=== PATIENT | male | born 1960 | race Caucasian/White ===

== ENCOUNTER 2019-12-19 09:16 | Emergency (ER) | payer BC ==
[2019-12-19 09:26] VITALS: BP 152/90; PULSE 104
--- NOTE | 2019-12-19 09:29 | EDM.PDOC ---
ED HPI GENERAL MEDICAL PROBLEM - General Chief Complaint: Lower Extremity Injury/Pain Stated Complaint: SWOLLEN RIGHT KNEE(POST FOOT SURGERY) Time Seen by Provider: 12/19/19 09:26 - History of Present Illness INITIAL COMMENTS - FREE TEXT/NARRATIVE: 59-year-old male presents the emergency room with right knee pain and swelling. The patient is a little over 3 weeks post right foot surgery and he is developed significant swelling around his knee and proximal to his knee. The pain he had postoperatively was nothing compared to this. [place]. Patient denies any fevers or chills no breathing difficulties or shortness of breath. The knee pain has been getting worse over the last 24 hours. Right Knee Pain Score (Numeric/FACES): 9 - Related Data Allergies Allergy/AdvReac Type Severity Reaction Status Date / Time hydrocodone Allergy Itching Verified 12/19/19 09:28 Home Meds: Home Meds traMADol HCl [Tramadol HCl] 50 mg PO Q6H PRN 12/19/19 [History] Past Medical History Other Musculoskeletal History: Split Plevis x2, Left shoulder dislocations - Past Surgical History Other Musculoskeletal Surgeries/Procedures:: Back Surgery, Left ankle and right foot fused Review of Systems - Review of Systems Review Of Systems: See Below Constitutional: Reports: No Symptoms Respiratory: Reports: No Symptoms Cardiovascular: Reports: No Symptoms GI/Abdominal: Reports: No Symptoms Genitourinary: Reports: No Symptoms Musculoskeletal: Reports: Foot Pain (Normal postop) ED EXAM, GENERAL - Physical Exam Exam: See Below Exam Limited By: No Limitations General Appearance: Alert, No Apparent Distress Head: Atraumatic, Normocephalic Neck: Normal Inspection, Supple, Non-Tender, Full Range of Motion Respiratory/Chest: No Respiratory Distress, Lungs Clear, Normal Breath Sounds Cardiovascular: Regular Rate, Rhythm, No Edema, No Murmur Back Exam: Normal Inspection. No: CVA Tenderness (L), CVA Tenderness (R), Muscle Spasm, Vertebral Tenderness Extremities: Other (Patient with right leg does not show significant discomfort in the lower leg. Incisions are healing well. The knee is significantly swollen with proximal swelling and discomfort more medial than lateral.) Course - Vital Signs Last Recorded V/S: Last Vital Signs Temp 37.4 C 12/19/19 09:24 Pulse 104 H 02/25/20 09:24 Resp 16 12/19/19 09:24 BP 152/90 H 12/19/19 09:24 Pulse Ox 92 L 12/19/19 09:24 - Orders/Labs/Meds Orders: Active Orders 24 hr Category Date Time Status Knee 3V Rt [CR] Stat Exams 12/19/19 09:40 Taken Labs: Laboratory Tests 12/19/19 12/19/19 Range/Units 10:33 10:33 WBC 10.50 H (4.23-9.07) K/mm3 RBC 4.68 (4.63-6.08) M/mm3 Hgb 14.6 (13.7-17.5) gm/dl Hct 41.5 (40.1-51.0) % MCV 88.7 (79.0-92.2) fl MCH 31.2 (25.7-32.2) pg MCHC 35.2 (32.2-35.5) g/dl RDW Std Deviation 41.3 (35.1-43.9) fL Plt Count 278 (163-337) K/mm3 MPV 8.8 L (9.4-12.3) fl Neut % (Auto) 76.9 H (34.0-67.9) % Lymph % (Auto) 11.6 L (21.8-53.1) % Foster % (Auto) 10.9 (5.3-12.2) % Eos % (Auto) 0.3 L (0.8-7.0) Baso % (Auto) 0.1 (0.1-1.2) % Neut # (Auto) 8.08 H (1.78-5.38) K/mm3 Lymph # (Auto) 1.22 L (1.32-3.57) K/mm3 Foster # (Auto) 1.14 H (0.30-0.82) K/mm3 Eos # (Auto) 0.03 L (0.04-0.54) K/mm3 Baso # (Auto) 0.01 (0.01-0.08) K/mm3 Sodium 140 (136-145) mEq/L Potassium 3.7 (3.5-5.1) mEq/L Chloride 103 (98-107) mEq/L Carbon Dioxide 25 (21-32) mEq/L Anion Gap 15.7 H (5-15) BUN 12 (7-18) mg/dL Creatinine 0.8 (0.7-1.3) mg/dL Est Cr Clr Drug Dosing 109.59 mL/min Estimated GFR (MDRD) > 60 (>60) mL/min BUN/Creatinine Ratio 15.0 (14-18) Glucose 104 (80-115) mg/dL Uric Acid 4.6 (3.5-7.2) mg/dL Calcium 9.0 (8.5-10.1) mg/dL C-Reactive Protein 4.2 H* (<1.0) mg/dL - Re-Assessments/Exams Free Text/Narrative Re-Assessment/Exam: 12/19/19 12:38 The patient's knee shows some chondrocalcinosis and significant degenerative joint disease. What I did not know was the patient is using 1 of those knee scooter to get around is foot surgery. Laboratory evaluation is unremarkable the patient case was discussed with Dr. Paulino who did come and evaluate the patient in the emergency room and would like to see him immediately after discharge from the ER for knee injection he believes the patient just flared up his arthritis in his knee which makes perfectly good sense now knowing he is using that little scooter. The patient also had a lower leg Doppler that was negative Departure - Departure Time of Disposition: 12:39 Disposition: Home, Self-Care 01 Clinical Impression: Degenerative joint disease of right knee - Discharge Information Referrals: Jasmyn Hoyt PA-C [Physician [employer]] - Forms: ED Department Discharge Additional Instructions: Return to the emergency room with any questions problems or worsening symptoms. Follow-up with Dr. Paulino immediately after leaving the emergency room Sepsis Event Note - Focused Exam Vital Signs: Vital Signs Temp Pulse Resp BP Pulse Ox 12/19/19 09:24 37.4 C 104 H 16 152/90 H 92 L Date Exam was Performed: 12/19/19 Time Exam was Performed: 12:38 - My Orders Last 24 Hours: My Active Orders 12/19/19 09:40 Knee 3V Rt [CR] Stat - Assessment/Plan Last 24 Hours: My Active Orders 12/19/19 09:40 Knee 3V Rt [CR] Stat
--- NOTE | 2019-12-19 10:46 | US ---
Right lower extremity deep venous ultrasound: Duplex and color Doppler evaluation was obtained of the right common femoral, proximal greater saphenous, superficial femoral, popliteal, posterior tibial and peroneal veins. Left common femoral vein was also evaluated. Comparison: No prior venous imaging is available. Findings: Normal phasic flow, augmentation and compression is seen. Complicated popliteal cyst noted measuring 3.8 x 3.3 x 2.3 cm Impression: 1. No evidence of deep venous thrombosis within the right lower extremity or within the left common femoral vein. 2. Popliteal cyst as noted above. Diagnostic code #2 This report was dictated in [place] Standard Time
--- NOTE | 2019-12-20 08:33 | CR ---
Right knee: AP, lateral and sunrise patellar views of the right knee were obtained. Comparison: No previous knee exam. Slight chondrocalcinosis seen within the menisci. Joint spaces are preserved. Small osteophyte is noted off the superior patella. No fracture or other bony abnormality is appreciated. Impression: 1. Mild degenerative change as noted above. Diagnostic code #2 This report was dictated in [place] Standard Time
== END 2019-12-19 12:45 | disposition home or self-care (01) ==
LOC: JD.ED 09:16
DX: M17.11 Unilateral primary osteoarthritis, right knee (principal); Z88.5 Allergy status to narcotic agent
CPT/HCPCS: 36415; 73562-26-RT; 73562-RT; 80048; 84550; 85025; 86140; 93971-26-RT; 93971-RT; 99282; 99284-25

== ENCOUNTER 2020-10-19 11:14 | Emergency (ER) | payer BC ==
--- NOTE | 2020-10-19 12:07 | EDM.PDOC ---
ED HPI GENERAL MEDICAL PROBLEM - General Chief Complaint: Lower Extremity Injury/Pain Stated Complaint: INJURY TO RT KNEE NOW HAS FLUID Time Seen by Provider: 10/19/20 11:50 Source of Information: Reports: Patient History Limitations: Reports: No Limitations - History of Present Illness INITIAL COMMENTS - FREE TEXT/NARRATIVE: 60-year-old male presents to the ED with an acute traumatic injury to his right knee. 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 He had a calf go [place] a 60 foot [place] yesterday and he was wiliam enough to find her. She was on the ice and she head butted him in the right lateral knee causing a valgus strain to the knee. At present he hurts from his right lower rib cage to his right ankle. He appreciates severe marked swelling of his right knee that is gradually increased in size over the last 12 hours. He did barely get any sleep last night due to the throbbing pain. He was hopeful that we could remove the fluid from his knee to reduce the pain and swelling. Patient has had multiple surgeries to his right foot in the past. He has had his right knee drained once in the past due to an accumulation of fluid presumably from arthritis. No previous right knee surgery. Onset: Sudden Onset Date: 10/18/20 Duration: Hour(s):, Getting Worse Location: Reports: Lower Extremity, Right Quality: Reports: Ache (Severe pain and swelling of the right knee.), Throbbing Severity: Severe (10) Improves with: Reports: Rest Worsens with: Reports: Other Context: Reports: Trauma (By 1000 pound calf yesterday with a valgus strain to his right knee.). 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, Other (see below) (He took some Tylenol with Benadryl medicine last night and got a few hours sleep.) Right Knee Pain Score (Numeric/FACES): 8 - Related Data Allergies Allergy/AdvReac Type Severity Reaction Status Date / Time hydrocodone Allergy Itching Verified 10/19/20 11:34 Home Meds: Home Meds HYDROmorphone [Dilaudid] 4 mg PO Q6H #20 tablet 10/19/20 [Rx] Past Medical History Other Musculoskeletal History: Split Plevis x2, Left shoulder dislocations - Past Surgical History GI Surgical History: Reports: Hernia Repair/Other Other Musculoskeletal Surgeries/Procedures:: Back Surgery, Left ankle and right foot fused Social & Family History - Tobacco Use Tobacco Use Status *Q: Never Tobacco User Second Hand Smoke Exposure: No - Caffeine Use Caffeine Use: Reports: Coffee - Recreational Drug Use Recreational Drug Use: No - Living Situation & Occupation Living situation: Reports: Occupation: Employed ([employer] employed [employer]) Review of Systems - Review of Systems Review Of Systems: See Below Constitutional: Reports: No Symptoms Eyes: Reports: Other Ears: Reports: Other (Wears glasses for reading. Mildly hard of hearing.) Nose: Reports: No Symptoms Mouth/Throat: Reports: No Symptoms Respiratory: Reports: No Symptoms Cardiovascular: Reports: No Symptoms GI/Abdominal: Reports: No Symptoms Genitourinary: Reports: Other (Nocturia x2) Musculoskeletal: Reports: Neck Pain, Shoulder Pain, Back Pain ( slow urinary stream.), Foot Pain Skin: Reports: No Symptoms Neurological: Reports: No Symptoms Psychiatric: Reports: No Symptoms ED EXAM, GENERAL - Physical Exam Exam: See Below Exam Limited By: No Limitations General Appearance: Alert, WD/WN, Mild Distress, Other (Patient is very stoic but he is in obvious discomfort. Temperature is 36.8 heart rate was 58 and sinus. Respiratory to 16 blood pressure 1 3592.) Respiratory/Chest: No Respiratory Distress, Lungs Clear, Normal Breath Sounds, No Accessory Muscle Use Cardiovascular: Normal Peripheral Pulses, Regular Rate, Rhythm, No Edema, No Gallop, No Murmur Peripheral Pulses: 2+: Posterior Tibial (L), Posterior Tibial (R), Dorsalis Pedis (L), Dorsalis Pedis (R) Extremities: Other (Lamination was limited both lower extremities. Patient has a very large traumatic effusion of the right knee which is failed the suprapatellar recess. It is still somewhat fluctuant suggesting is not clotted completely yet. He has loss of 70 degrees flexion at the knee. He also has 10 degree loss of extension due to pain. He has pain along the medial and lateral aspects of the knee joint. Patellofemoral articulation appears to be normal.) Neurological: Alert, Oriented, CN II-XII Intact Psychiatric: Normal Affect, Normal Mood Skin Exam: Warm, Dry, Intact, Normal Color, No Rash Course - Vital Signs Last Recorded V/S: Last Vital Signs Temp 36.8 C 10/19/20 11:30 Pulse 78 10/19/20 13:20 Resp 18 10/19/20 13:20 BP 146/82 H 10/19/20 13:20 Pulse Ox 97 10/19/20 13:20 - Orders/Labs/Meds Orders: Active Orders 24 hr Category Date Time Status Knee 3V Rt [CR] Stat Exams 10/19/20 12:03 Taken DME for Discharge [COMM] Per Unit Routine Oth 10/19/20 13:15 Ordered - Radiology Interpretation Free Text/Narrative:: 60-year-old male presents to the ED for evaluation of right knee pain. Injury occurred yesterday when he had to wrangle one of his large calves gone [place] 60 [place]. He states he was head butted in the right lateral knee causing a valgus strain to the knee. He hurts from his right lower ribs to his ankle. He cannot weight-bear on the right leg at this time due to pain. Exam reveals a large traumatic effusion of the right knee. Likely torn cruciate ligaments. Unable to assess well because of the pain and inability to flex his knee. Plan an x-ray of the knee will be obtained to make sure there is no fractures but clinically he likely has meniscal tear and cruciate ligament tear. Offered analgesia but he states he gets very pruritic from oral narcotics such as Percocet and hydrocodone. - Re-Assessments/Exams Free Text/Narrative Re-Assessment/Exam: 10/19/20 13:05: X-rays of the right knee have been performed. He does have some degenerative changes particular at the patellofemoral articulation with some spurring on the inferior portion of the patella. Mild degenerative arthritic change appreciated within the true knee joint. No fractures identified within the knee , proximal tibia or distal femur. Patient will be placed in a right knee splint to be worn at all times until follow-up with Dr. Paulino -- orthopedic surgeon in the clinic within the next week to 10 days. Patient will use Motrin 600 mg every 6 hours necessary for pain relief. He states that he gets very itchy from taking Percocet or hydrocodone. I again did give him a prescription for Dilaudid 4 mg tablets to be taken 1 tablet every 4 hours as necessary to help take the edge off the pain for the next couple of days. He will elevate the right leg is much as possible. Ice pack to the knee today and start heat pack tomorrow. Clinically has internal derangement of the knee with significant traumatic effusion. Departure - Departure Time of Disposition: 13:22 Disposition: Home, Self-Care 01 Condition: Fair Clinical Impression: Internal derangement of right knee, Traumatic hemarthrosis of right knee - Discharge Information *PRESCRIPTION DRUG MONITORING PROGRAM REVIEWED*: Not Applicable *COPY OF PRESCRIPTION DRUG MONITORING REPORT IN PATIENT CARL: Not Applicable Prescriptions: HYDROmorphone [Dilaudid] 4 mg PO Q6H #20 tablet Instructions: How to Use Cold Therapy, [id number] Referrals: PCP,None [Primary Care Provider] - Forms: ED Department Discharge Additional Instructions: Evaluation in the emergency room today in regards to acute injury to the right knee that occurred yesterday p.m. when you were struck by a large calf on the right side of your body. Acute injury to the right knee has occurred with a valgus strain from being struck from the outside / lateral aspect of your knee. This is resulted in in the knee filling up with blood from the trauma. This suggest that there is internal derangement of the knee likely torn cruciate ligament and meniscus or cartilage tear. X-rays of the knee revealed some degenerative arthritic changes particularly at the inferior portion of the kneecap but there was no broken bones in the knee as one would anticipate. Treatment at this time is ice pack to the knee 1/2-hour out of every 4 hours today and then start to use heat on the knee tomorrow to help reduce the swelling. Nonweightbearing crutch walking until follow-up with Dr. Paulino orthopedic surgeon. Knee immobilizer to be worn certainly all day long and may leave off at night if not going to be up to the washroom too many times. Please phone Dr. Paulino's office on Wednesday morning to arrange an appointment. His phone number is [phone]. Use Motrin 600 mg every 6 hours to reduce pain and inflammation. May try Dilaudid 4 mg tablet 1 every 4-6 hours as necessary for pain relief especially at nighttime for the next few days until the swelling starts to settle down. Sepsis Event Note (ED) - Evaluation Sepsis Screening Result: No Definite Risk - Focused Exam Vital Signs: Vital Signs Temp Pulse Resp BP Pulse Ox 10/19/20 13:20 78 18 146/82 H 97 10/19/20 11:30 36.8 C 16 135/92 H - My Orders Last 24 Hours: My Active Orders 10/19/20 12:03 Knee 3V Rt [CR] Stat 10/19/20 13:15 DME for Discharge [COMM] Per Unit Routine - Assessment/Plan Last 24 Hours: My Active Orders 10/19/20 12:03 Knee 3V Rt [CR] Stat 10/19/20 13:15 DME for Discharge [COMM] Per Unit Routine
[2020-10-19 14:02] VITALS: BP 146/82; PULSE 78
--- NOTE | 2020-10-20 09:58 | CR ---
Right knee: AP, lateral and sunrise patellar views of the right knee were obtained. Comparison: No prior knee study. Osteophyte is noted off the lateral tibia. Slight osteophytes are noted off the intercondylar tibial spines. Large joint effusion appears to be present. Osteophytes are noted off the patella. No definite acute abnormality is appreciated. Vascular calcification is also noted. Impression: 1. Mild degenerative change as noted above. 2. Large joint effusion. 3. Nothing acute is seen within the osseous structures. Diagnostic code #3
== END 2020-10-19 13:35 | disposition home or self-care (01) ==
LOC: JD.ED 11:14
DX: S83.91XA Sprain of unspecified site of right knee, initial encounter (principal); S89.81XA Other specified injuries of right lower leg, initial encounter; Z88.5 Allergy status to narcotic agent; W22.8XXA Striking against or struck by other objects, initial encounter
CPT/HCPCS: 73562-26-RT; 73562-RT; 99283-25

== ENCOUNTER 2021-03-30 14:27 | Emergency (ER) | payer BC ==
--- NOTE | 2021-03-30 14:46 | EDM.PDOC ---
ED HPI GENERAL MEDICAL PROBLEM - General Chief Complaint: General Stated Complaint: FALL/RIB PAIN Time Seen by Provider: 03/30/21 15:05 Source of Information: Reports: Patient History Limitations: Reports: No Limitations - History of Present Illness INITIAL COMMENTS - FREE TEXT/NARRATIVE: 60-year-old male presents to the ED for evaluation of left chest wall injury. 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 States it knocked the wind out of him. He continued to work until last evening when the pain got the best of him. He had to sleep in an easy chair overnight. He reports taking 4 Excedrin migraine tablets last night for pain relief. Narcotics usually cause him to have terrible pruritus. Today the pain is worse. It is worse with every deep breath. He denies any hemoptysis or shoulder or supraclavicular chest pain. Denies injuries to any other organs.. He denies hitting his head or losing consciousness. Onset: Sudden Onset Date: 03/29/21 Onset Time: 16:00 Duration: Day(s): (24 hours), Constant, Getting Worse Location: Reports: Chest (Left posterior lateral chest pain starting just below his axilla and radiating from front to back.) Quality: Reports: Ache, Sharp (Sharp stabbing pain with a spastic component that stops his breathing.), Stabbing Severity: Moderate (8 out of 10.) Improves with: Reports: Rest, Other Worsens with: Reports: Other (Worse with coughing or deep breathing.) Context: Reports: Trauma (Tripped and fell at home yesterday landing hard on his left lateral chest wall). Denies: Activity ( Also movement of his left arm causes pain in his left chest wall.), Exercise, Lifting, Sick Contact Associated Symptoms: Reports: Chest Pain, Loss of Appetite, Shortness of Breath. Denies: Confusion, Cough, cough w sputum, Diaphoresis, Fever/Chills, Headaches, Malaise, Nausea/Vomiting, Rash, Seizure, Syncope, Weakness Treatments [employer]: Reports: Other (see below) (Patient is taking Excedrin Migraine.) Left Chest Pain Score (Numeric/FACES): 7 - Related Data Allergies Allergy/AdvReac Type Severity Reaction Status Date / Time hydrocodone Allergy Severe Itching Verified 03/30/21 14:49 Home Meds: Home Meds . [No Known Home Meds] 03/30/21 [History] Past Medical History Other Musculoskeletal History: Split Plevis x2, Left shoulder dislocations - Past Surgical History GI Surgical History: Reports: Hernia Repair/Other Other Musculoskeletal Surgeries/Procedures:: Back Surgery--discectomy, Left ankle and right foot fused. Social & Family History - Caffeine Use Caffeine Use: Reports: Coffee - Living Situation & Occupation Living situation: Reports: Occupation: Employed ([employer]) ED ROS GENERAL - Review of Systems Review Of Systems: See Below Constitutional: Denies: Fever, Chills, Malaise HEENT: Reports: No Symptoms Respiratory: Reports: Shortness of Breath. Denies: Wheezing, Pleuritic Chest Pain, Cough, Sputum, Hemoptysis Cardiovascular: Reports: No Symptoms Endocrine: Reports: No Symptoms GI/Abdominal: Reports: No Symptoms : Reports: Frequency, Other Musculoskeletal: Reports: Neck Pain, Shoulder Pain, Back Pain (Chronic left shoulder pain from recurrent dislocations.), Joint Pain (Knees and hips at times.) Skin: Reports: No Symptoms Neurological: Reports: No Symptoms Psychiatric: Reports: No Symptoms Hematologic/Lymphatic: Reports: No Symptoms Immunologic: Reports: No Symptoms ED EXAM, GENERAL - Physical Exam Exam: See Below Exam Limited By: No Limitations General Appearance: Alert, WD/WN, Moderate Distress, Other (Patient is a good deal of pain. Offered analgesia orally or intravenously but he declined. Temperature is 36.6. Heart rate 72 and sinus. Respiratory is 20 with O2 sats of 93 to 94% room air. BP slightly elevated 156/87.) Eye Exam: Bilateral Eye: Normal Inspection (No scleral icterus or blepharal pallor.), PERRL Throat/Mouth: Normal Inspection, Normal Lips, Normal Oropharynx, Other Head: Atraumatic (No dental or tongue injury.), Normocephalic Neck: Normal Inspection, Supple, Non-Tender, Full Range of Motion. No: Carotid Bruit, Lymphadenopathy (L), Lymphadenopathy (R) Respiratory/Chest: Lungs Clear, Normal Breath Sounds, Respiratory Distress (Tachypnea at the bedside. Shallow respirations.), Other (No subcutaneous emphysema. Chest wall tenderness elicited ribs 6 7 and 8 posterior laterally left chest wall. No crepitus elicited but I did not push all that hard but discussed clinically has fractures.). No: Decreased Breath Sounds, Crackles, Rales, Rhonchi, Wheezing Cardiovascular: Normal Peripheral Pulses, Regular Rate, Rhythm, No Edema, No Gallop, No Murmur, No Rub Peripheral Pulses: 3+: Carotid (L), Carotid (R), Posterior Tibial (L), Posterior Tibial (R), Dorsalis Pedis (L), Dorsalis Pedis (R) GI/Abdominal: Normal Bowel Sounds, Soft, Non-Tender, No Organomegaly, No Mass, Pelvis Stable, Tender, Other (Patient is improved bruise over his left anterior 10th rib. Mild tenderness elicited on firm palpation left upper quadrant of the abdomen with no obvious peritoneal signs.). No: Guarding (Upper quadrant), Rigid, Rebound Back Exam: Normal Inspection. No: CVA Tenderness (L), CVA Tenderness (R) Extremities: Normal Inspection, Normal Range of Motion, Non-Tender, No Pedal Edema Neurological: Alert, Oriented, CN II-XII Intact, Normal Cognition Psychiatric: Normal Affect, Normal Mood Skin Exam: Warm, Dry, Intact, Normal Color, No Rash Course - Vital Signs Last Recorded V/S: Last Vital Signs Temp 36.6 C 03/30/21 14:48 Pulse 72 03/30/21 14:48 Resp 20 03/30/21 14:48 BP 156/87 H 03/30/21 14:48 Pulse Ox 93 L 03/30/21 14:48 - Orders/Labs/Meds Meds: Medications Discontinued Medications Generic Name Dose Route Start Last Admin Trade Name Freq PRN Reason Stop Dose Admin Ibuprofen 600 mg 03/30/21 16:09 03/30/21 16:16 Ibuprofen 600 Mg Tab PO 03/30/21 16:10 600 mg ONETIME ONE Administration - Radiology Interpretation Free Text/Narrative:: 60-year-old male presents to the ED for evaluation of injury to his left lateral chest wall. This occurred about 1600 hrs. yesterday afternoon when he got tripped up over a water hose and he fell hard to the ground on his left lateral chest wall. Patient slept sitting up last night with shallow respirations. Pain is worse today with every deep breath causing a sharp spastic type pain in his left lateral chest wall. No cough or sputum production. Denies hemoptysis. Denies injury to his head neck or any other body parts yesterday. On examination he is exquisitely tender ribs 6 7 and 8 left posterior lateral chest without subcu subcutaneous emphysema. He does have crepitus on exam. Plan CT of the chest to be done without IV contrast. This will give me a look at his spleen and left kidney. Once again I did offer the patient analgesia either orally or intravenously but he declined. He states narcotics make him extremely pruritic. - Re-Assessments/Exams Free Text/Narrative Re-Assessment/Exam: 03/30/21 15:47 CT of the chest has been completed without IV contrast. Medi astinum and hilar regions show no adenopathy or masses. Mild atherosclerotic calcification is seen within the coronary arteries as well as within the thoracic aorta. No aneurysm is seen within the thoracic aorta. No axillary adenopathy is seen or pericardial thickening is seen. Patchy areas of increased density are noted within both lung bases as well as within the lingula. Findings most likely represent areas of prominent atelectasis. No pleural effusions are identified. There is evidence of fractures of ribs 3, 4 and 5th left lateral posterior chest wall. Associated mild hematoma surrounding the fracture sites. There is no obvious injury to the spleen or kidney. There are parapelvic cysts bilaterally without signs of upper urinary tract obstruction. There is also a renal cyst on the left side. Liver appears to be within normal limits as well. Multiple areas of the thoracic spine are fused together. Departure - Departure Time of Disposition: 16:00 Disposition: Home, Self-Care 01 Condition: Fair Clinical Impression: Ribs, multiple fractures Qualifiers: Encounter type: initial encounter Fracture type: closed Laterality: left Qualified Code(s): S22.42XA - Multiple fractures of ribs, left side, initial encounter for closed fracture - Discharge Information *PRESCRIPTION DRUG MONITORING PROGRAM REVIEWED*: Not Applicable *COPY OF PRESCRIPTION DRUG MONITORING REPORT IN PATIENT CARL: Not Applicable Instructions: Rib Fracture, [id number] Referrals: Kesha Thompson CARD FILER [Primary Care Provider] - Forms: ED Department Discharge Additional Instructions: Evaluation in the emergency room today in regards to acute injury to the left chest wall secondary to a trip and fall yesterday while working outside. Marked tenderness appreciated palpation of the left upper ribs particular area #[address] of the chest performed reveals no injury to the underlying lung or blood within the lung base. No injury to the spleen or kidney on the left side either. There are fractures of ribs 3, 4, 5 [address] scan[address] Treatment is time to heal. This is on average about 3 to 4 weeks for partial healing in 6 weeks to be completely healed. Activity as tolerated. Suggest Motrin 600 mg every 6 hours or Aleve 2 tablets every 8 hours for pain relief. May also use Tylenol 650 mg every 4 hours for pain relief. Between the 2 of them they work differently to control pain. Sepsis Event Note (ED) - Focused Exam Vital Signs: Vital Signs Temp Pulse Resp BP Pulse Ox 03/30/21 14:48 36.6 C 72 20 156/87 H 93 L
[2021-03-30 14:49] VITALS: BP 156/87; PULSE 72
--- NOTE | 2021-03-30 15:54 | CT ---
CT chest Technique: Multiple axial sections through the chest were obtained. Intravenous contrast was not utilized. Reconstructed coronal and sagittal images were obtained. Comparison: Prior chest x-ray of 11/20/19. Findings: Small cyst is partially visualized within left kidney. Parapelvic cysts appear to be present within the left kidney. No acute abnormality is appreciated on noncontrast study of the upper abdomen. Mediastinum and hilar regions show no adenopathy or mass. Mild atherosclerotic calcification is seen within the coronary arteries as well as within the thoracic aorta. No aneurysm is seen within the thoracic aorta. No axillary adenopathy is seen. No pericardial thickening is seen. Patchy areas of increased density are noted within both lung bases as well as within the lingula. Findings most likely represent areas of prominent atelectasis. No pleural effusions are seen. No other acute parenchymal process is noted within either lung. Bone window settings were reviewed which shows no acute osseous abnormality. Impression: 1. Areas of fairly prominent atelectasis within both lung bases and lingula. 2. Small cyst within the left kidney as well as probable parapelvic cyst within the left kidney. 3. Other findings below incidental as noted above. Diagnostic code #2
[2021-03-30] MEDS ORDERED: Ibuprofen 600 MG Tab PO ONE (16:09)
== END 2021-03-30 16:24 | disposition home or self-care (01) ==
LOC: JD.ED 14:27
DX: S22.42XA Multiple fractures of ribs, left side, initial encounter for closed fracture (principal); Z88.5 Allergy status to narcotic agent; W01.0XXA Fall on same level from slipping, tripping and stumbling without subsequent striking against object, initial encounter
CPT/HCPCS: 71250; 99283; A9270; 99284

== ENCOUNTER 2024-10-09 06:45 | Day surgery (SDC) | payer MEDICARE ==
[~2024-10-09 06:45] MED LIST: Sodium Chloride 0.9% 10 ML Syringe FLUSH PRN; Sodium Chloride 0.9% 10 ML Syringe FLUSH SCH
[2024-10-09] MEDS: Lactated Ringers 1,000 ML IV SCH (06:50)
[2024-10-09] MEDS: Pregabalin 25 MG Cap PO SCH (07:09)
[2024-10-09] MEDS: oxyCODONE ER 10 MG TAB.ER PO SCH (07:09)
[2024-10-09] MEDS: Acetaminophen 325 MG Tab PO SCH (07:09)
[2024-10-09] MEDS ORDERED: ceFAZolin 2 GM Vial ONE (07:28)
[2024-10-09] MEDS ORDERED: Propofol 200 MG/20 ML SDV ONE ×3 (07:28→08:45)
[2024-10-09] MEDS ORDERED: Midazolam 1 MG/ML 2 ML SDV ONE ×2 (07:28→08:41)
[2024-10-09] MEDS ORDERED: Ondansetron 4 MG/2 ML SDV ONE (07:28)
[2024-10-09] MEDS ORDERED: Ketamine 200 MG/20 ML MDV ONE (08:11)
[2024-10-09] MEDS ORDERED: fentaNYL 100 MCG/2 ML SDV ONE ×2 (08:40→09:34)
[2024-10-09] MEDS ORDERED: Ropivacaine 0.5% 5 MG/ML 30 ML SDV ONE (08:49)
[2024-10-09] MEDS ORDERED: dexmedeTOMIDine HCl 200 MCG/2 ML SDV ONE (08:49)
[2024-10-09] MEDS ORDERED: ePHEDrine 50 MG/ML SDV ONE (09:03)
[2024-10-09] MEDS ORDERED: Ondansetron 4 MG/2 ML SDV IVPUSH PRN (09:05)
[2024-10-09] MEDS: Morphine 8 MG, EPINEPHrine 0.3 MG, Cefuroxime 750 MG, Ketorolac 30 MG, Sodium Chloride ... PRN (09:17)
[2024-10-09] MEDS: VANCOmycin 1 GM SDV ONE (09:22)
[2024-10-09] MEDS: Tranexamic Acid 1,000 MG/10 ML Vial ONE (09:22)
[2024-10-09] MEDS: fentaNYL 100 MCG/2 ML SDV IVPUSH PRN (09:51)
[2024-10-09] MEDS: HYDROmorphone 0.5 MG/0.5 ML Syringe IVPUSH PRN (10:14)
[2024-10-09] MEDS: Ketorolac 30 MG/ML SDV IVPUSH ONE (10:27)
[2024-10-09] MEDS: Cyclobenzaprine 10 MG Tab PO PRN (11:25)
[2024-10-09] MEDS: traMADol 50 MG Tab PO PRN (11:33)
[2024-10-09 13:14] VITALS: BP 134/86; PULSE 77
== END 2024-10-09 13:45 | disposition home or self-care (01) ==
LOC: JD.SDS 06:45
PROVIDERS: ATTEND Orthopaedic Surgery
DX: M17.12 Unilateral primary osteoarthritis, left knee (principal)
CPT/HCPCS: 0055T; 27447; 64447; 73560; 97110; 97116; 97161; A9270; C1713; C1776; J0171; J0690; J0697; J1171; J1885; J2250; J2272; J2405; J2704; J2795; J3010; J3490; J7120